=== PATIENT | female | born 1965 | race African-American/Black ===

== ENCOUNTER → 2019-02-07 | Day surgery (SDC) | payer SELFPAY ==
--- NOTE | 2019-02-07 11:21 | NUR ---
Pt was scheduled for 0840 arrival time. Pt arrived at 0915 with daughter and granddaughter. When asked about bowel preparation, pt voiced her daughter was the one who spoke with the office and the dtr gave pt several laxative pills. Pt denies having results, reports last BM was T-1 and "very hard". Pt also was drinking coffee with cream and suger upon arrival and reports drinking approx. 1/2 c, stating she did not know she couldn't. After notifing Dr Mays, pts procedure was cancelled. This nurse notified office of need to reschedule. Pt acknowledged reasons for need to reschedule and sent home.
== END ==
LOC: SDCO 09:06
DX: Z12.11 Encounter for screening for malignant neoplasm of colon (principal); Z53.8 Procedure and treatment not carried out for other reasons